=== PATIENT | male | born 1980 | race Caucasian/White ===

== ENCOUNTER 2020-05-06 14:20 | Observation (INO) | payer OTHER ==
[~2020-05-06] VITALS: Ht 177.8 cm; Wt 104.3 kg
[2020-05-06 14:40] LABS: BASO % 0.2 % (0.0-1.0); EOS % 0.2 % (0.0-3.0); HEMATOCRIT 43.9 % (42.0-52.0); HEMOGLOBIN 14.9 g/dl (13.5-17.5); LYMPH # 1.2 10^3/uL (1.5-5.0); MEAN CORPUSCULAR HEMOGLOBIN 28.7 pg (27.0-33.0); MEAN CORPUSCULAR HGB CONC 33.9 g/dl (32.0-36.5); MEAN CORPUSCULAR VOLUME 84.4 fl (80.0-96.0); MONO # 0.6 10^3/uL (0.0-0.8); MONO % 3.9 % (0.0-5.0); NEUTROPHILS # 14.7 10^3/uL (1.5-8.5); NEUTROPHILS % 88.3 % (36.0-66.0); PLATELET COUNT, AUTOMATED 193 10^3/uL (150-450); WHITE BLOOD COUNT 16.6 10^3/uL (4.0-10.0)
[2020-05-06] MEDS ORDERED: ONDANSETRON 4MG/2ML VIAL IV ONE (14:45)
--- NOTE | 2020-05-06 14:47 | REP ---
INDICATION: CHEST PAIN COMPARISON: None. TECHNIQUE: Portable AP view of the chest FINDINGS: The mediastinum and cardiac silhouette are stable and within normal limits for portable technique. The lung lew are clear without acute consolidation, effusion, or pneumothorax. Skeletal structures are intact. IMPRESSION: No acute cardiopulmonary process appreciated. <Electronically signed by Nam Akhtar > 05/06/20 [id number]
[2020-05-06 14:55] LABS: INR 0.92; PROTHROMBIN TIME 12.6 SECONDS (12.5-14.3)
[2020-05-06 14:56] LABS: PARTIAL THROMBOPLASTIN TIME 25.6 SECONDS (24.2-38.5)
--- NOTE | 2020-05-06 14:57 | REP ---
INDICATION: CVA - Nursing interventions must not delay CT COMPARISON: None. TECHNIQUE: Axial noncontrast images from the skull base to the vertex with coronal reformations. This CT examination was performed using the following dose reduction techniques: Automated exposure control, adjustment of mA and/or kv according to the patient's size, and use of iterative reconstruction technique. FINDINGS: The ventricles, sulci, and cisterns are normal in position and appearance. Sykes-white differentiation is maintained. No acute intracranial hemorrhage, mass/mass effect, pathology or trauma/injury. No evidence for acute infarction. No extra-axial fluid collection. Calvarium is intact. Paranasal sinuses and mastoid air cells are clear. IMPRESSION: Normal noncontrast head CT. No evidence for acute intracranial pathology or trauma/injury. <Electronically signed by Nam Akhtar > 05/06/20 [id number]
[2020-05-06] MEDS ORDERED: MECLIZINE 25 MG TABLET PO ONE (15:00)
[2020-05-06] MEDS ORDERED: NS 1,000 ML IV ONE (15:00)
[2020-05-06 15:25] LABS: ALT/SGPT 40 U/L (12-78); BILIRUBIN,DIRECT 0.2 MG/DL (0.0-0.2); BILIRUBIN,TOTAL 0.5 MG/DL (0.2-1.0); BLOOD UREA NITROGEN 18 MG/DL (7-18); CALCIUM LEVEL 9.1 MG/DL (8.5-10.1); CARBON DIOXIDE LEVEL 25 MEQ/L (21-32); CHLORIDE LEVEL 111 MEQ/L (98-107); CK-MB VALUE MASS < 1.0 NG/ML (<3.6); CPK CREATINE PHOSPHOKINASE 110 U/L (39-308); CREATININE FOR GFR 1.32 MG/DL (0.70-1.30); FREE T4 1.14 NG/DL (0.76-1.46); GLOMERULAR FILTRATION RATE > 60.0 (>60); GLUCOSE, FASTING 146 MG/DL (70-100); LIPASE 98 U/L (73-393); MB/CK RELATIVE INDEX 0.91 (< OR =4); POTASSIUM SERUM 4.7 MEQ/L (3.5-5.1); SODIUM LEVEL 141 MEQ/L (136-145); THYROID STIMULATING HORMONE 0.735 uIU/ML (0.358-3.740); TOTAL PROTEIN 7.4 GM/DL (6.4-8.2); TROPONIN I < 0.02 NG/ML (< 0.10)
--- NOTE | 2020-05-06 16:59 | HPEPDOC ---
[facility] Medical History & Physical Date of Admission May 06, 2020 Date of Service: May 06, 2020 History and Physical CHIEF COMPLAINT: Dizziness HISTORY OF PRESENT ILLNESS: 40-year-old male with past medical history of GERD presents to the emergency department after having vertigo and nausea/vomiting for the past 3 hours. He is feeling lightheaded as if the room was spinning and dizzy. He states she's been getting vertigo on and off for the past 2 years and both his parents have similar symptoms at times. However this time seems to be the worst his vertigo has gotten. He states that staying still and not moving seems to help with his dizziness. Movements exacerbate his dizziness and being on the nausea and vomiting. He has not tried any medications to alleviate the symptoms. He states he does not eat much salt in his diet. In the emergency department it was noted that his heart rate was low when he was asked about it he states he does not know what his heart rate usually rests. 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 He does endorse that boluses father, brother, sister were diagnosed with SA gerson dysfunction. PAST MEDICAL HISTORY: GERD PAST SURGICAL HISTORY: Denies any SOCIAL HISTORY: Denies alcohol use Denies tobacco use Denies illicit drug use FAMILY HISTORY: Mother and father have a history of vertigo Father, brother, sister have all been diagnosed with SA gerson dysfunction ALLERGIES: Please see below. REVIEW OF SYSTEMS: Full 12 system conducted, pertinent positives and negatives reviewed in HPI, all others negative. Constitutional: denies fevers, chills CV: denies CP, palpitations Resp: denies cough, SOB : denies dysuria, hematuria HOME MEDICATIONS: Please see below. PHYSICAL EXAMINATION: Constitutional: Awake and alert, in mild apparent distress ENT: Sclera are clear. Mucosa is moist. Respiratory: Lungs CTA bilaterally. No respiratory distress. No use of accessory muscles. Cardiovascular: Sinus bradycardia S1 and S2 are normal, no murmur Gastrointestinal: Abdomen is soft, non distended, non tender, BS present. Musculoskeletal: No edema. No joint deformities. RUE 5/5, LUE 5/5, BLE 5/5 Neurologic: No focal neurological deficit. Mental Status: A&O x3, normal affect Skin: Warm, dry LABORATORY DATA: See below. IMAGING: Imaging reviewed. See chart. MICROBIOLOGY: Please see below. ASSESSMENT/PLAN 40-year-old male with no significant past medical history presents to the ED for vertigo with nausea and vomiting at home and was found to have symptomatic sinus bradycardia will be admitted to medical unit for observation. # Vertigo with nausea and vomiting: CT head negative. MRI ordered from ED Pending. QTC okay. Zofran when necessary and Reglan scheduled. Continue meclizine which is helping. IV fluids. Advanced diet as tolerated. UDS. PPI. # Sinus bradycardia: Asymptomatic. Baseline unknown. Could be because he is a young active gentleman who exercises a lot. Tells me he does a lot of cardio daily. I discussed the case with Dr. Herbert who recommended admission for observation on telemetry overnight and then follow-up with him in the clinic where he will undergo treadmill testing and 30 day Holter monitor. Ordered echo results to be followed up with Dr. Herbert in clinic. Monitor electrolytes and replace. Lyme testing pending. # Leukocytosis: No signs or symptoms of infection likely reactive. Trend. CXR, UA. cxr # LUKE: Prerenal dehydration. IV fluids. Avoid nephrotoxins. # DVT prophylaxis: Heparin A Yousef Hospitalist Vital Signs Vital Signs Date Time Temp Pulse Resp B/P (MAP) Pulse Ox O2 Delivery O2 Flow Rate FiO2 05/06/20 16:30 42 128/83 (98) 100 Room Air 05/06/20 15:50 15 05/06/20 15:16 98.1 Laboratory Data Labs 24H Laboratory Tests 2 05/06/20 14:31: Immature Granulocyte % (Auto) 0.4, Neutrophils (%) (Auto) 88.3H, Lymphocytes (%) (Auto) 7.0L, Monocytes (%) (Auto) 3.9, Eosinophils (%) (Auto) 0.2, Basophils (%) (Auto) 0.2, Neutrophils # (Auto) 14.7H, Lymphocytes # (Auto) 1.2L, Monocytes # (Auto) 0.6, Eosinophils # (Auto) 0.0, Basophils # (Auto) 0.0, Nucleated Red Blood Cells % (auto) 0.0, Prothrombin Time 12.6, Prothromb Time International Ratio 0.92, Activated Partial Thromboplast Time 25.6, POC Glucose (Misc Panel) 149H, POC Sodium (Misc Panel) 141, POC Potassium (Misc Panel) 4.5, POC Chloride (Misc Panel) 105, POC Total CO2 (Misc Panel) 23.0, POC Blood Urea Nitrogen (Misc Panel 20, POC Ionized Calcium (Misc Panel) 4.9, POC Creatinine (Misc Panel) 1.3, POC Hematocrit (Misc Panel) 46.0, Anion Gap 5L, Glomerular Filtration Rate > 60.0, Calcium Level 9.1, Total Bilirubin 0.5, Direct Bilirubin 0.2, Aspartate Amino Transf (AST/SGOT) 27, Alanine Aminotransferase (ALT/SGPT) 40, Alkaline Phosphatase 80, Total Creatine Kinase 110, Creatine Kinase MB < 1.0, Creatine Kinase MB Relative Index 0.91, Troponin I < 0.02, Total Protein 7.4, Albumin 4.0, Albumin/Globulin Ratio 1.2, Lipase 98, Thyroid Stimulating Hormone (TSH) 0.735, Free Thyroxine 1.14 05/06/20 14:34: POC Troponin I (Misc) 0.00 05/06/20 14:53: Bedside Glucose (Misc Panel) 132H 05/06/20 14:55: CBC/BMP Laboratory Tests 05/06/20 14:31 Home Medications No Active Prescriptions or Reported Meds Allergies Coded Allergies: No Known Allergies (Unverified , 05/06/20) A-FIB/CHADSVASC A-FIB History Current/History of A-Fib/PAF?: No JHONNY LAINEZ MD May 06, 2020 16:59
[2020-05-06] MEDS ORDERED: ACETAMINOPHEN TAB 650MG DOSE (2X325MG) PO PRN (17:00)
[2020-05-06] MEDS ORDERED: ONDANSETRON 4MG/2ML VIAL IV PRN (17:00)
[2020-05-06] MEDS ORDERED: MECLIZINE 25 MG TABLET PO PRN (17:00)
[2020-05-06] MEDS ORDERED: MOM 30ML SUSPENSION UDC PO PRN (17:00)
[2020-05-06 17:40] VITALS: BP 129/74
[2020-05-06] MEDS: METOCLOPRAMIDE INJ 10MG/2ML VIAL (J2765 PER 1) IV SCH (18:33)
[2020-05-06] MEDS: NS 1,000 ML IV SCH (18:33)
[2020-05-06] MEDS: PANTOPRAZOLE 40MG VIAL (C9113 PER 1) IV SCH (18:33)
[2020-05-06] MEDS: HEPARIN SOD (PORCINE) 5000UNITS/ML 1ML VIAL/SYRINGE SQ SCH (21:15)
[2020-05-06 22:00] VITALS: BP 125/71
[2020-05-07] MEDS: METOCLOPRAMIDE INJ 10MG/2ML VIAL (J2765 PER 1) IV SCH ×3 (00:11→13:41)
[2020-05-07] MEDS ORDERED: RAMELTEON 8 MG TAB (ROZEREM) PO PRN (01:15)
[2020-05-07] MEDS: NS 1,000 ML IV SCH ×2 (01:16→08:38)
[2020-05-07 06:00] VITALS: BP 118/65
[2020-05-07 06:09] LABS: APPEARANCE, URINE CLEAR (CLEAR); BACTERIA, URINE AUTO NEGATIVE (NEGATIVE); BILIRUBIN, URINE AUTO NEGATIVE (NEGATIVE); BLOOD, URINE BLOOD NEGATIVE (NEGATIVE); COLOR, URINE YELLOW (YELLOW); GLUCOSE, URINE (UA) AUTO NEGATIVE (NEGATIVE); KETONE, URINE AUTO TRACE mg/dL (NEGATIVE); LEUKOCYTE ESTERASE, URINE AUTO NEGATIVE (NEGATIVE); NITRITE, URINE AUTO NEGATIVE (NEGATIVE); PROTEIN, URINE AUTO NEGATIVE (NEGATIVE); RBC, URINE AUTO 0 /HPF (0-3); SQUAMOUS EPITHELIAL CELL UR AU 0 /HPF (0-6); UROBILINOGEN, URINE AUTO 0.2 mg/dL (0.0-2.0); WBC, URINE AUTO 1 /HPF (0-3)
[2020-05-07 06:10] LABS: HEMATOCRIT 40.5 % (42.0-52.0); HEMOGLOBIN 13.6 g/dl (13.5-17.5); MEAN CORPUSCULAR HGB CONC 33.6 g/dl (32.0-36.5); MEAN CORPUSCULAR VOLUME 86.4 fl (80.0-96.0); PLATELET COUNT, AUTOMATED 198 10^3/uL (150-450); RED BLOOD COUNT 4.69 10^6/uL (4.30-6.10); WHITE BLOOD COUNT 10.6 10^3/uL (4.0-10.0)
[2020-05-07 06:24] LABS: AMPHETAMINES LEVEL URINE NEGATIVE (NEGATIVE); BARBITURATES URINE NEGATIVE (NEGATIVE); BENZODIAZEPINES URINE NEGATIVE (NEGATIVE); CANNABINOIDS URINE NEGATIVE (NEGATIVE); COCAINE METABOLITE URINE NEGATIVE (NEGATIVE); METHADONE URINE NEGATIVE (NEGATIVE); OPIATES URINE NEGATIVE (NEGATIVE); PHENCYCLIDINE URINE NEGATIVE (NEGATIVE)
[2020-05-07 06:28] LABS: BLOOD UREA NITROGEN 15 MG/DL (7-18); CALCIUM LEVEL 8.2 MG/DL (8.5-10.1); CARBON DIOXIDE LEVEL 27 MEQ/L (21-32); CHLORIDE LEVEL 112 MEQ/L (98-107); CREATININE FOR GFR 1.35 MG/DL (0.70-1.30); GLOMERULAR FILTRATION RATE > 60.0 (>60); GLUCOSE, FASTING 89 MG/DL (70-100); POTASSIUM SERUM 3.8 MEQ/L (3.5-5.1); SODIUM LEVEL 144 MEQ/L (136-145)
[2020-05-07] MEDS: HEPARIN SOD (PORCINE) 5000UNITS/ML 1ML VIAL/SYRINGE SQ SCH (08:38)
[2020-05-07] MEDS: PANTOPRAZOLE 40MG VIAL (C9113 PER 1) IV SCH (08:38)
[2020-05-07] MEDS ORDERED: ENOXAPARIN 40MG/0.4ML SYRINGE (J1650 PER 10MG) SC SCH (09:00)
--- NOTE | 2020-05-07 10:43 | REP ---
INDICATION: dizzyness per hospitalist. COMPARISON: Comparison CT study of the brain is 06 May 2020. TECHNIQUE: Axial and sagittal imaging planes are utilized for T1 and T2-weighted scans. Sequences include spin-echo, fast spin echo, FLAIR, and diffusion weighted sequences. FINDINGS: No bony calvarial lesion is seen. Craniocervical junction and upper cervical cord are normal in appearance. There are 2 mucous retention cysts noted in the left maxillary sinus. There is no MR evidence of significant paranasal sinus disease. No intraorbital abnormality is seen. The lateral, third, and fourth ventricles are normal in size and position. Sykes-white differentiation pattern is intact above and below the tentorium. There is no evidence of intracranial hemorrhage. No mass, infarction, extra-axial fluid collection or midline shift is seen. No abnormal white matter lesion is seen. IMPRESSION: Left maxillary sinus mucous retention cysts noted incidentally. Otherwise negative noncontrast brain MRI study. <Electronically signed by Walter Browning > 05/07/20 [id number]
--- NOTE | 2020-05-07 11:10 | IPNPDOC ---
Text Note Date of Service The patient was seen on 05/07/20. NOTE Subjective: Patient seen and examined this morning tells me he is doing much better and no longer has any vertigo or nausea or vomiting. Understands plan to follow-up with cardiology outpatient. Ready to go home today. Has been able to tolerate food okay and keep it down. No overnight events reported to me. Objective: Constitutional: Awake and alert, appears comfortable and is in no distress today has been walking around his room ENT: Sclera are clear. Mucosa is moist. Respiratory: Lungs CTA bilaterally. No respiratory distress. No use of accessory muscles. Cardiovascular: Sinus bradycardia S1 and S2 are normal, no murmur Gastrointestinal: Abdomen is soft, non distended, non tender, BS present. Musculoskeletal: No edema. No joint deformities. RUE 5/5, LUE 5/5, BLE 5/5 Neurologic: No focal neurological deficit. Mental Status: A&O x3, normal affect Skin: Warm, dry Assessment/plan: 40-year-old male with no significant past medical history presents to the ED for vertigo with nausea and vomiting at home and was found to have symptomatic sinus bradycardia will be admitted to medical unit for observation. # Vertigo with nausea and vomiting: Has now resolved. CT head negative. MRI brain shows left maxillary sinus mucous retention cyst noted incidentally otherwise negative. QTC okay. Zofran when necessary and Reglan scheduled. Meclizine. Advanced diet as tolerated. UDS negative. PPI. # Sinus bradycardia: Asymptomatic. Baseline unknown. No events on telemetry. Could be because he is a young active gentleman who exercises a lot. Tells me he does a lot of cardio daily. I discussed the case with Dr. Herbert who recommended admission for observation on telemetry overnight and then follow-up with him in the clinic where he will undergo treadmill testing and 30 day Holter monitor. Ordered echo results to be followed up with Dr. Herbert in [facility]. Monitor electrolytes and replace. Lyme serology is pending and can be followed up with his PCP # Leukocytosis: Was likely reactive as it down trended from 16.6 yesterday to 10.6 almost normal today. CXR and urinalysis okay. Afebrile. # LUKE: Prerenal dehydration. IV fluids and encouraged to continue aggressive oral hydration as tolerated upon discharge and follow-up with his PCP to repeat his blood work in the outpatient setting and 2-5 days upon discharge. # DVT prophylaxis: Heparin A Whit Hospitalist Cortney DOMINIQUE I+O Cortney DOMINIQUE I+O Laboratory Tests 05/06/20 14:31 05/07/20 05:39 Vital Signs Date Time Temp Pulse Resp B/P (MAP) Pulse Ox O2 Delivery O2 Flow Rate FiO2 05/07/20 06:00 98.0 51 16 118/65 (82) 95 Room Air I&O- Last 24 Hours up to 6 AM 05/07/20 06:00 Intake Total 1320 ml Output Total 375 ml Balance 945 ml JHONNY LAINEZ MD May 07, 2020 11:10
[2020-05-07] MEDS ORDERED: MECL-86 PO (11:22)
[2020-05-07] MEDS ORDERED: PROT20TA11 PO (11:22)
[2020-05-07] MEDS ORDERED: ZOFR4TAB16 PO (11:22)
[2020-05-07 14:00] VITALS: BP 117/67
--- NOTE | 2020-05-08 09:01 | ECGEPIP ---
[facility] - ED Test Date: 2020-05-06 Pat Name: JIMMIE ROE Department: Room: [place] [address] Gender: Male [employer]: DONNELL : 1980 Requested By: Rachel Kirkland Order Number: [id number] Reading MD: Larissa Mcfadden Measurements Intervals Camilla Rate: 37 P: 58 AZ: 188 QRS: 34 QRSD: 109 T: 0 QT: 483 QTc: 384 Interpretive Statements SINUS BRADYCARDIA No prior Electronically Signed on 05-08-2020 9:01:25 EDT by Larissa Mcfadden
[2020-05-08 17:06] LABS: Lyme Disease IgG/IgM Antibodie <0.91 ISR (0.00-0.90); Lyme Disease IgM Ab Quantitati <0.80 index (0.00-0.79)
== END 2020-05-07 14:46 | disposition home or self-care (01) ==
LOC: M ED 14:20 → M ED INP 14:21 → ENRESERV 17:09 → M MSPAV 17:40
PROVIDERS: ADMIT Family Medicine; ATTEND Family Medicine
DX: R00.1 Bradycardia, unspecified (principal); R11.2 Nausea with vomiting, unspecified; D72.829 Elevated white blood cell count, unspecified; N17.9 Acute kidney failure, unspecified; E86.0 Dehydration; K21.9 Gastro-esophageal reflux disease without esophagitis
CPT/HCPCS: 36415; 70450; 70551; 71045; 80047; 80048; 80076; 80307; 81001; 82550; 82553; 83690; 83735; 84439; 84443; 84484; 85025; 85027; 85610; 85730; 86617; 86850; 86900; 86901; 93005; 93041; 94760; 96361; 96372; 96374; 96375; 96376; 97161; 99285; C9113; J1644; J2405; J2765